=== PATIENT | female | born 1975 | race Two or more races ===

== ENCOUNTER 2021-04-15 14:03 | Emergency (ER) | payer BC, OTHER ==
[~2021-04-15] VITALS: Ht 165.1 cm; Wt 67.6 kg
[2021-04-15 14:45] LABS: Basophils # (auto) 0.1 10 ^3/uL (0-0.2); Eosinophils # (auto) 0.1 10 ^3/uL (0-0.8); Eosinophils % (auto) 1.1 % (0.0-7.0); Hematocrit 42.6 % (36.0-46.0); Hemoglobin 14.6 g/dL (12.2-16.2); Lymphocytes # (auto) 2.4 10 ^3/uL (0.4-5.4); Lymphocytes % (auto) 32.7 % (10.0-50.0); Mean Corpuscular Hemoglobin 27.9 pg (28.0-32.0); Mean Corpuscular Hgb Conc. 34.4 g/dL (32.0-36.0); Monocytes # (auto) 0.4 10 ^3/uL (0-1.3); Neutrophils # (auto) 4.4 10 ^3/uL (1.6-8.6); Neutrophils % (auto) 59.2 % (37.0-80.0); Nucleated Red Blood Cells % 0.1 %; Red Blood Cells 5.25 10^6/uL (4.0-5.20); Red Cell Distribution Width 13.5 % (11.8-14.3); White Blood Cell 7.4 10^3/uL (4.4-10.8)
[2021-04-15] MEDS ORDERED: ASPirin 81 mg TAB PO ONE (14:45)
[2021-04-15 15:08] LABS: Albumin 4.1 g/dL (3.4-5.0); Anion Gap 4 (5-15); Blood Urea Nitrogen 13 mg/dL (7-18); Calcium 8.9 mg/dL (8.5-10.1); Carbon Dioxide 29 mmol/L (21-32); Chloride 107 mmol/L (98-107); Glucose 84 mg/dL (74-106); Magnesium 2.4 mg/dL (1.6-2.6); Potassium 3.8 mmol/L (3.5-5.1); Sodium 140 mmol/L (136-145)
[2021-04-15 15:17] LABS: Alanine Aminotransferase 27 U/L (13-56); Alkaline Phosphatase 103 U/L (45-117); Aspartate Aminotransferase 13 U/L (15-37); BUN/Creatinine Ratio 14.4; Bilirubin, Total 0.3 mg/dL (0.2-1.0); GFR African American 86 mL/min; GFR Non-African American 71 mL/min; Total Protein 8.3 g/dL (6.4-8.2)
[2021-04-15 18:25] VITALS: BP 168/72
== END 2021-04-15 18:30 | disposition home or self-care (01) ==
LOC: ER 14:03
DX: M54.12 Radiculopathy, cervical region (principal); R07.89 Other chest pain
CPT/HCPCS: 36415; 71045; 72125; 80053; 83735; 84484; 85025; 93005

== ENCOUNTER 2021-10-13 08:10 | Emergency (ER) | payer BC, OTHER ==
[~2021-10-13] VITALS: Ht 165.1 cm; Wt 67.1 kg
[2021-10-13] MEDS ORDERED: IBU600T PO (08:37)
[2021-10-13] MEDS ORDERED: KETOROLAC TROMETH 60MG/2ML VIAL IM ONE (08:45)
[2021-10-13 10:13] LABS: Urine Bacteria FEW /hpf (None Seen); Urine Blood Negative /uL (Negative); Urine Specific Gravity 1.009 (1.001-1.035); Urine WBC 14 /hpf (0 - 5)
[2021-10-13] MEDS ORDERED: NITR-87 PO (10:44)
[2021-10-13 11:14] VITALS: BP 120/76
== END 2021-10-13 11:22 | disposition home or self-care (01) ==
LOC: EDBD 08:10 → ER 08:10
DX: S09.90XA Unspecified injury of head, initial encounter (principal); M25.512 Pain in left shoulder; M25.522 Pain in left elbow; M54.2 Cervicalgia; N39.0 Urinary tract infection, site not specified; V43.52XA Car driver injured in collision with other type car in traffic accident, initial encounter; Y93.89 Activity, other specified; Y92.410 Unspecified street and highway as the place of occurrence of the external cause; Y99.8 Other external cause status
CPT/HCPCS: 70450; 72125; 73030; 73060; 73070; 81001; 96372; 99285; J1885